=== PATIENT | male | born 2000 | race Caucasian/White ===

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

== ENCOUNTER 2024-03-05 16:52 | Emergency (ER) | payer OTHER | END 2024-03-05 18:05 | disposition home or self-care (01) | LOC: MADERS 16:52 | DX: J11.1 Influenza due to unidentified influenza virus with other respiratory manifestations (principal); F17.210 Nicotine dependence, cigarettes, uncomplicated | CPT/HCPCS: 87081; 87428; 87430; 99283 ==